=== PATIENT | female | born 1945 | race Caucasian/White ===

== ENCOUNTER → 2019-09-19 | Outpatient (CLI) | payer OTHER | END | disposition home or self-care (01) | LOC: NUCLEAR 15:28 | DX: I72.1 Aneurysm of artery of upper extremity (principal); I73.9 Peripheral vascular disease, unspecified ==

== ENCOUNTER 2019-10-06 16:04 | Outpatient (CLI) | payer OTHER | END 2019-10-06 16:29 | disposition home or self-care (01) | LOC: LAB 16:04 | DX: M79.621 Pain in right upper arm (principal) ==

== ENCOUNTER → 2019-10-06 | Outpatient (CLI) | payer OTHER | END | disposition home or self-care (01) | LOC: NUCLEAR 15:33 | DX: M79.621 Pain in right upper arm (principal) ==

== ENCOUNTER 2019-11-09 09:08 | Outpatient (CLI) | payer OTHER | END 2019-11-09 09:37 | disposition home or self-care (01) | LOC: NUCLEAR 09:08 | DX: E11.59 Type 2 diabetes mellitus with other circulatory complications (principal); M79.604 Pain in right leg; M79.605 Pain in left leg; I73.9 Peripheral vascular disease, unspecified ==

== ENCOUNTER 2019-11-10 08:23 | Outpatient (CLI) | payer OTHER | END 2019-11-10 08:38 | disposition home or self-care (01) | LOC: NUCLEAR 08:23 | DX: E11.59 Type 2 diabetes mellitus with other circulatory complications (principal); M79.604 Pain in right leg; M79.605 Pain in left leg ==